=== PATIENT | male | born 1930 | race Caucasian/White ===

== ENCOUNTER → 2017-02-01 | Outpatient (CLI) | payer MEDICARE, BC ==
[~2017-02-01] MED LIST: ASCORBIC ACID500 MG PO; ASPIRIN LO-DOSE81 MG PO; CALCIUM 600 +1 EAC6 PO; CINNAMON500 MG PO; CORDARONE,PACE200 MG PO; COREG 3.1253.125 MG PO; FISH OIL 1,0001 EAC1 PO; FLOMAX0.4 MG PO; FLONASE 50 MCG/16 GM NOSE; GLUCOPHAGE500 MG PO; HUMIBID LA (MU600 MG PO; KLOR-CON M2020 MEQ PO; LANOXIN (DIGI250 MCG PO; LEVAQUIN 250 M250 MG PO; LEVOTHROID (SY88 MCG PO; MULTI VITAMIN1 EACH PO; NEOSPORIN1 PKT TOP; PRAVACHOL40 MG PO; PRILOSEC20 MG PO; PULMICORT FLE180 MCG INH; RESTASIS 0.05%1 VIAL OPHTH; SPIRIVA HANDIHA1 KIT INH; TYLENOL EXTRA500 MG PO; TYLENOL WITH C1 EACH PO; VITAMIN D1000 UNIT PO; [UNRECOGNIZED DRUG - OTHER] PO
== END ==
LOC: LGSMG 11:52
DX: I25.5 Ischemic cardiomyopathy (principal); I25.10 Atherosclerotic heart disease of native coronary artery without angina pectoris; Z79.899 Other long term (current) drug therapy; I50.9 Heart failure, unspecified

== ENCOUNTER → 2017-05-19 | Outpatient (CLI) | payer MEDICARE, BC | LOC: LGSMG 12:46 | DX: Z00.00 Encounter for general adult medical examination without abnormal findings (principal); I25.10 Atherosclerotic heart disease of native coronary artery without angina pectoris; I10 Essential (primary) hypertension; N40.1 Benign prostatic hyperplasia with lower urinary tract symptoms; I25.5 Ischemic cardiomyopathy; E11.9 Type 2 diabetes mellitus without complications; Z79.899 Other long term (current) drug therapy; E03.9 Hypothyroidism, unspecified; E78.2 Mixed hyperlipidemia ==

== ENCOUNTER 2017-05-31 07:03 | Day surgery (SDC) | payer MEDICARE, BC ==
[~2017-05-31] VITALS: Ht 172.7 cm; Wt 73.0 kg
--- NOTE | ~2017-05-31 | OR ---
PATIENT'S NAME: MARLY GARZA [facility] AGE: 87 Y [address] ROOM: [place] [address] [place] [facility] [place]: 05/31/[place] OR/Procedure Report DISCHARGE DATE: FAMILY PHYSICIAN: Theo Hyde MD ATTENDING PHYSICIAN: Melissa Dietrich SURGEON: Melissa Dietrich MD SCIENTIFIC EDITOR: DATE OF PROCEDURE: 05/31/2017 PREOPERATIVE DIAGNOSIS: Benign prostatic hyperplasia with urinary retention. POSTOPERATIVE DIAGNOSIS: Benign prostatic hyperplasia with urinary retention. PROCEDURE PERFORMED: Cystoscopy, TURP. SURGEON: Melissa Dietrich M.D. ANESTHESIA: General. COMPLICATIONS: None. INDICATION FOR PROCEDURE: The patient is an 87-year-old male with BPH and urinary retention with a postvoid residual of 538 mL during his office visit. DETAILS OF PROCEDURE: After informed consent was obtained, the patient was taken to the operating room. A general anesthetic was applied. He was placed in the dorsal lithotomy position. The groin area was prepped and draped in normal sterile fashion. The resectoscope sheath was then introduced into the urethra and bladder under direct visualization. Following this, the resectoscope was introduced. Resection was begun at the floor of prostate to the level of the verumontanum. Then the lateral lobes were resected followed by anterior lobe. Bleeding areas were fulgurated for hemostasis. The bladder was empty of chips and further resection was carried out down to the level crossing fibers. The remainder of chips were irrigated out and for hemostasis was achieved. Following completion of this, the patient has excellent widely patent prostatic urethra. A 24-Divehi Perkins catheter was placed on traction. The patient tolerated his procedure well and was transferred to recovery room in good condition. MELISSA DIETRICH MD RENATE/modl PATIENT'S NAME: MARLY GARZA [facility] AGE: 87 Y [address] ROOM: [place] [address] [place] [facility] [place]: 05/31/2017 OR/Procedure Report DISCHARGE DATE: FAMILY PHYSICIAN: Theo Hyde MD ATTENDING PHYSICIAN: Melissa Dietrich /[id number] CC: Theo Hyde MD d: 05/31/17 2256 t: 06/01/17 1646, OPERATIVE SUMMARY
[~2017-05-31 07:03] MED LIST changes: -LEVAQUIN 250 M250 MG PO; -NEOSPORIN1 PKT TOP; -TYLENOL WITH C1 EACH PO
[2017-05-31 07:38] LABS: BASOPHIL % 0.4 %; EOSINOPHIL # 0.2 K/uL (0.0-0.5); EOSINOPHIL % 1.6 %; HEMATOCRIT 37.1 % (33.0-50.0); HEMOGLOBIN 12.2 g/dL (11.0-16.0); IMMATURE GRANULOCYTE % 0.2 %; LYMPHOCYTE # 1.3 K/uL (0.8-4.0); LYMPHOCYTE % 14.2 %; MCH 30.8 pg (27.0-34.0); MCHC 32.9 gm/dL (32.0-36.5); MCV 93.7 fl (83.0-98.0); MONOCYTE # 1.1 K/uL (0.0-1.0); MONOCYTE % 11.3 %; MPV 9.8 fl (9.4-12.4); NEUTROPHIL # (ANC) 6.7 K/uL (1.4-9.0); NEUTROPHIL % 72.3 %; NRBC % 0 /100WBC (0-0.00); PLATELET COUNT 229 K/uL (150-450); RBC 3.96 M/uL (3.50-5.50); RDW-CV 13.3 % (11.9-14.6); WBC 9.3 K/uL (4.0-11.0)
[2017-05-31 07:59] LABS: ALBUMIN 3.1 gm/dL (3.5-5.0); ANION GAP 11.9 (10.0-19.0); CALCIUM 8.7 mg/dL (8.5-10.5); CREATININE 0.8 mg/dL (0.6-1.3); POTASSIUM 3.9 mMol/L (3.7-5.1); TOTAL BILIRUBIN 0.5 mg/dL (0.0-1.5)
--- NOTE | 2017-05-31 15:40 | NUR ---
Significant Event: PT A&O x3, forgetful. VSS, on room air. Perkins patent, CBI running at slow rate. Minimal c/o pain. Midline IV patent to R)arm. Ice applied to knees for chronic knee pain, relief noted. PT repositions self in bed. Tolerating full liquid diet, advance as tolerates. Family at bedside. Follow up:
--- NOTE | 2017-06-01 04:02 | NUR ---
Significant Event: A/O X3, bedrest overnight, turns self in bed. orellana to CBI at slow rate, urine clear, pleasant/cooperative, IVF per R)Powerglide, uses Incentive Spirometry to 1000ml. Follow up: accuchecks possible discharge this afternoon
[2017-06-01] MEDS ORDERED: TYLENOL WITH C1 EACH PO (14:55)
[2017-06-01] MEDS ORDERED: NEOSPORIN1 PKT TOP (14:55)
[2017-06-01] MEDS ORDERED: LEVAQUIN 250 M250 MG PO (14:58)
--- NOTE | 2017-06-01 16:00 | NUR ---
DISCHARGE: D: ORDERS RECEIVED FOR THE PATIENT TO BE DISCHARGED TO DAY WITH FAMILY I: DISMISSAL INSTRUCTIONS WERE PREPARED AND REVIEWED WITH THE PATIENT AND HIS FAMILY VIRTUALLY. THE FOLLOWING INFORMATION WAS DISCUSSED INCLUDING [employer]RAMES TEACHING SHEETS PROVIDED: TRANSURETHRAL RESECTION OF THE PROSTATE (TURP), HOME CARE FOR TURP, CYSTOSCOPY, LEVAQUIN, NEOSPORIN, TYLENOL WITH CODEINE, PREVENTING DVT, DISHCARGE INSTRUCTIONS FOR CARING FOR YOUR INDWELLING URINARY CATHETER, D.I. CARING FOR YOUR LEG BAG, AND EMPTYING AND CLEANING YOUR URINARY CATHETER BAG. R: THE PATIENT AND FAMLY BOTH VERBALIZED UNDERSTANDING OF THE DISMISSAL EDUCATION AT THE TIME OF TEACHING WITH NO FURTHER QUESTIONS. P: THE ABOVE INFORMATION WAS SHARED WITH THE PRIMARY NURSE AND THE CHARGE NURSE THAT THE PATIENT'S DISMISSAL EDUCATION WAS COMPLETED. THE PATIENT IS READY FOR DISCHARGE TO THE FRONT DO[facility] VIA WHEEL CHAIR BY NURSING STAFF.
== END 2017-06-01 17:18 | disposition disaster alternative care site (69) ==
LOC: GMSU 07:03 → GPOC 07:03 → GMSU 12:14 → GPOC 06-01 17:18
PROVIDERS: Urology
PROC: 0VT08ZZ Resection of Prostate, Via Natural or Artificial Opening Endoscopic (ICD-10-PCS; principal; 2017-05-31)
PROC: 0TJB8ZZ Inspection of Bladder, Via Natural or Artificial Opening Endoscopic (ICD-10-PCS; 2017-05-31)
DX: N40.1 Benign prostatic hyperplasia with lower urinary tract symptoms (principal); R33.8 Other retention of urine; J45.909 Unspecified asthma, uncomplicated; I25.10 Atherosclerotic heart disease of native coronary artery without angina pectoris; E11.9 Type 2 diabetes mellitus without complications; E03.9 Hypothyroidism, unspecified; I10 Essential (primary) hypertension; E78.2 Mixed hyperlipidemia; J44.9 Chronic obstructive pulmonary disease, unspecified
CPT/HCPCS: C1751; J1956; J2001; J3010; J7030